=== PATIENT | male | born 1965 | race Caucasian/White ===

== ENCOUNTER 2017-01-26 18:58 | Emergency (ER) | payer OTHER ==
[~2017-01-26] VITALS: Ht 185.4 cm; Wt 138.0 kg
[~2017-01-26 18:58] MED LIST: AMLODIPINE-BEN1 EAC5 PO; BENTYL20 MG PO; EXFORGE 5/321 TABLET PO; FLEXERIL10 MG PO; FLOMAX0.4 MG PO; GLIPIZIDE10 MG PO; GLUCOPHAGE XR1000 MG PO; GLUCOPHAGE1000 MG PO; GLYBURIDE5 MG PO; OXYCODONE HCL5 M1 PO; PERCOCET 5/31 TABLET PO; POTASSIUM CITR10 MEQ PO; PROAIR HFA8.5 GM IH; PROTONIX40 MG PO; ULTRAM50 MG PO; ZITHROMAX Z-PA250 MG PO; ZOFRAN ODT4 MG PO; ZOFRAN ODT8 MG PO; [UNRECOGNIZED DRUG - REMARK]
[2017-01-26 20:13] LABS: HEMATOCRIT 41.9 % (38.0-50.0); MCH 29.2 PG (29.0-34.0); MCHC 33.4 G/DL (30.0-36.0); MCV 87.5 FL (86-99); MEAN PLAT.VOLUME 9.4 uM^3 (9.0-12.4); PLATELET COUNT 209 K/uL (156-360); RBC DIS.WIDTH-CV 13.2 % (11.8-14.6); RBC DIS.WIDTH-SD 42.1 % (39-53); RED BLOOD COUNT 4.79 M/uL (4.00-5.50); WHITE BLOOD COUNT 11.9 K/uL (4.1-10.2)
[2017-01-26 20:22] LABS: CHLORIDE 105 mEq/L (99-109); POTASSIUM 4.9 mEq/L (3.7-5.4); SODIUM 138 mEq/L (136-147)
[2017-01-26] MEDS ORDERED: MELOXICAM15 MG PO (20:22)
[2017-01-26 20:24] LABS: GLUCOSE 191 mg/dL (70-99)
[2017-01-26 20:25] LABS: ANION GAP 9 MEQ/L (2-14)
[2017-01-26 20:28] LABS: GFR ESTIMATE (CALCULATED) > 59 mL/min/
[2017-01-26 20:29] LABS: UREA NITROGEN (BUN) 20 mg/dL (9-23)
[2017-01-26 21:05] LABS: ADD MIUA? YES; BILIRUBIN NEGATIVE; BLOOD LARGE; COLOR YELLOW ((YELLOW)); GLUCOSE (STRIP) NEGATIVE; KETONES 5; LEUKOCYTES SMALL; NITRITE NEGATIVE; PROTEIN (STRIP) 30; SPECIFIC GRAVITY 1.018 (1.000-1.030); UROBILINOGEN 0.2 MG/DL (0.2-1.0)
[2017-01-26 21:14] LABS: BACTERIA NONE SEEN /HPF; EPITHELIAL CELLS RARE /HPF; MUCUS TRACE /LPF; RED BLOOD CELLS 20-30 /HPF (0-5); UCUL ADDED? NO
[2017-01-26] MEDS ORDERED: ZOFRAN4 MG PO (21:44)
[2017-01-26] MEDS ORDERED: TORADOL10 MG PO (21:44)
[2017-01-26] MEDS ORDERED: PERCOCET 5/31 TABLET PO (21:44)
[2017-01-26] MEDS ORDERED: FLOMAX0.4 MG PO (21:44)
[2017-01-26 22:50] VITALS: BP 123/84
== END 2017-01-26 23:02 | disposition home or self-care (01) ==
LOC: EME 18:58 → EXP 18:58
DX: N13.2 Hydronephrosis with renal and ureteral calculous obstruction (principal); I10 Essential (primary) hypertension; E11.65 Type 2 diabetes mellitus with hyperglycemia; Z79.84 Long term (current) use of oral hypoglycemic drugs; Z87.891 Personal history of nicotine dependence
CPT/HCPCS: 74176; 80048; 81003; 85027; 99281; 99285; J1885; J3010; J7030

== ENCOUNTER 2017-04-11 01:10 | Emergency (ER) | payer BC ==
[~2017-04-11] VITALS: Ht 185.4 cm; Wt 141.3 kg
[~2017-04-11 01:10] MED LIST changes: +MELOXICAM15 MG PO; +TORADOL10 MG PO; +ZOFRAN4 MG PO
[2017-04-11 01:33] LABS: HEMATOCRIT 37.2 % (38.0-50.0); MCH 29.6 PG (29.0-34.0); MCHC 33.6 G/DL (30.0-36.0); MCV 88.2 FL (86-99); MEAN PLAT.VOLUME 9.1 uM^3 (9.0-12.4); PLATELET COUNT 188 K/uL (156-360); RBC DIS.WIDTH-CV 12.8 % (11.8-14.6); RBC DIS.WIDTH-SD 41.5 % (39-53); RED BLOOD COUNT 4.22 M/uL (4.00-5.50); WHITE BLOOD COUNT 9.5 K/uL (4.1-10.2)
[2017-04-11 01:44] LABS: CHLORIDE 102 mEq/L (99-109); POTASSIUM 4.3 mEq/L (3.7-5.4); SODIUM 137 mEq/L (136-147)
[2017-04-11 01:46] LABS: GLUCOSE 171 mg/dL (70-99)
[2017-04-11 01:48] LABS: ANION GAP 11 MEQ/L (2-14)
[2017-04-11 01:50] LABS: GFR ESTIMATE (CALCULATED) 56 mL/min/
[2017-04-11 01:51] LABS: UREA NITROGEN (BUN) 16 mg/dL (9-23)
[2017-04-11 02:27] LABS: ADD MIUA? YES; BILIRUBIN NEGATIVE; BLOOD MODERATE; COLOR YELLOW ((YELLOW)); GLUCOSE (STRIP) NEGATIVE; KETONES NEGATIVE; LEUKOCYTES NEGATIVE; NITRITE NEGATIVE; PROTEIN (STRIP) NEGATIVE; SPECIFIC GRAVITY 1.012 (1.000-1.030); UROBILINOGEN 0.2 MG/DL (0.2-1.0)
[2017-04-11 02:32] LABS: BACTERIA RARE /HPF; EPITHELIAL CELLS NONE SEEN /HPF; MUCUS TRACE /LPF; UCUL ADDED? NO; WHITE BLOOD CELLS 0-5 /HPF (0-5)
[2017-04-11] MEDS ORDERED: ZOFRAN ODT4 MG PO (03:01)
[2017-04-11] MEDS ORDERED: FLOMAX0.4 MG PO (03:01)
[2017-04-11] MEDS ORDERED: PERCOCET 5/31 TABLET PO (03:01)
[2017-04-11 04:27] VITALS: BP 133/91
[2017-04-12] MEDS ORDERED: DILAUDID2 MG PO (07:16)
== END 2017-04-11 04:33 | disposition home or self-care (01) ==
LOC: EME 01:10 → EXP 01:10
DX: N20.0 Calculus of kidney (principal); R31.9 Hematuria, unspecified; R73.9 Hyperglycemia, unspecified; Z87.442 Personal history of urinary calculi; Z86.73 Personal history of transient ischemic attack (TIA), and cerebral infarction without residual deficits; Z87.891 Personal history of nicotine dependence
CPT/HCPCS: 74000; 80048; 81003; 85027; 99281; 99284; J1885; J2405; J3010; J7030

== ENCOUNTER 2017-04-12 04:41 | Emergency (ER) | payer BC ==
[~2017-04-12] VITALS: Ht 185.4 cm; Wt 141.8 kg
[2017-04-12 05:40] LABS: HEMATOCRIT 34.5 % (38.0-50.0); MCH 28.8 PG (29.0-34.0); MCHC 32.2 G/DL (30.0-36.0); MCV 89.4 FL (86-99); MEAN PLAT.VOLUME 8.7 uM^3 (9.0-12.4); PLATELET COUNT 159 K/uL (156-360); RBC DIS.WIDTH-CV 12.7 % (11.8-14.6); RBC DIS.WIDTH-SD 41.4 % (39-53); RED BLOOD COUNT 3.86 M/uL (4.00-5.50); WHITE BLOOD COUNT 9.4 K/uL (4.1-10.2)
[2017-04-12 05:46] LABS: CHLORIDE 105 mEq/L (99-109); POTASSIUM 4.1 mEq/L (3.7-5.4); SODIUM 138 mEq/L (136-147)
[2017-04-12 05:49] LABS: GLUCOSE 188 mg/dL (70-99)
[2017-04-12 05:50] LABS: ANION GAP 8 MEQ/L (2-14)
[2017-04-12 05:51] LABS: TOTAL BILIRUBIN 0.5 mg/dL (0.0-1.0)
[2017-04-12 05:52] LABS: ALKALINE PHOSPHATASE 65 IU/L (3-129); GFR ESTIMATE (CALCULATED) > 59 mL/min/
[2017-04-12 05:53] LABS: UREA NITROGEN (BUN) 17 mg/dL (9-23)
[2017-04-12 06:45] LABS: ADD MIUA? YES; BILIRUBIN NEGATIVE; BLOOD SMALL; COLOR YELLOW ((YELLOW)); GLUCOSE (STRIP) 50; KETONES NEGATIVE; LEUKOCYTES NEGATIVE; NITRITE NEGATIVE; PROTEIN (STRIP) NEGATIVE; SPECIFIC GRAVITY 1.016 (1.000-1.030); UROBILINOGEN 0.2 MG/DL (0.2-1.0)
[2017-04-12 06:48] LABS: BACTERIA NONE SEEN /HPF; EPITHELIAL CELLS NONE SEEN /HPF; MUCUS TRACE /LPF; UCUL ADDED? NO; WHITE BLOOD CELLS 0-5 /HPF (0-5)
[2017-04-12] MEDS ORDERED: DILAUDID2 MG PO (07:16)
[2017-04-12 08:00] VITALS: BP 120/77
== END 2017-04-12 08:00 | disposition home or self-care (01) ==
LOC: EME 04:41
PROVIDERS: Physician Assistant
DX: N20.2 Calculus of kidney with calculus of ureter (principal); Z87.442 Personal history of urinary calculi; Z86.73 Personal history of transient ischemic attack (TIA), and cerebral infarction without residual deficits; Z87.891 Personal history of nicotine dependence
CPT/HCPCS: 74176; 80053; 81003; 85027; 99281; 99284; J1885; J2270; J2405; J3010; J7030

== ENCOUNTER 2017-07-14 15:57 | Emergency (ER) | payer OTHER, BC ==
[~2017-07-14] VITALS: Ht 185.4 cm; Wt 140.9 kg
[~2017-07-14 15:57] MED LIST changes: +DILAUDID2 MG PO
[2017-07-14 20:00] VITALS: BP 156/96
[2017-07-14] MEDS ORDERED: VALIUM5 MG PO (20:01)
[2017-07-14] MEDS ORDERED: PERCOCET 5/31 TABLET PO (20:01)
== END 2017-07-14 20:26 | disposition home or self-care (01) ==
LOC: EME 15:57
DX: M54.42 Lumbago with sciatica, left side (principal); M47.896 Other spondylosis, lumbar region; I10 Essential (primary) hypertension; E11.9 Type 2 diabetes mellitus without complications; Z91.041 Radiographic dye allergy status
CPT/HCPCS: 72100; 99281; 99284; J1100; J1885